=== PATIENT | female | born 1955 | race Native Hawaiian/Other Pacific Islander ===

== ENCOUNTER 2016-09-16 17:29 | Outpatient (CLI) | payer BC | END 2016-09-16 23:53 | disposition home or self-care (01) | LOC: US 17:29 | DX: R60.0 Localized edema (principal) ==

== ENCOUNTER 2016-10-24 07:58 | Outpatient (CLI) | payer BC | END 2016-10-24 19:34 | disposition home or self-care (01) | LOC: MAMMO 07:58 | DX: Z12.31 Encounter for screening mammogram for malignant neoplasm of breast (principal) | CPT/HCPCS: G0202-TC ==

== ENCOUNTER 2017-11-05 09:31 | Outpatient (CLI) | payer BC | END 2017-11-05 19:29 | disposition home or self-care (01) | LOC: MAMMO 09:31 | DX: Z12.31 Encounter for screening mammogram for malignant neoplasm of breast (principal) ==

== ENCOUNTER 2017-11-23 09:57 | Outpatient (CLI) | payer BC | END 2017-11-23 20:44 | disposition home or self-care (01) | LOC: RAD 09:57 | DX: Z13.820 Encounter for screening for osteoporosis (principal); N95.8 Other specified menopausal and perimenopausal disorders ==

== ENCOUNTER 2019-02-15 11:04 | Outpatient (CLI) | payer BC | END 2019-02-15 22:32 | disposition home or self-care (01) | LOC: RAD 11:04 | DX: M54.12 Radiculopathy, cervical region (principal) ==

== ENCOUNTER 2019-02-28 09:51 | Outpatient (CLI) | payer BC | END 2019-02-28 23:20 | disposition home or self-care (01) | LOC: MAMMO 09:51 | DX: Z12.31 Encounter for screening mammogram for malignant neoplasm of breast (principal) ==

== ENCOUNTER → 2019-06-18 | Outpatient (CLI) | payer BC | LOC: RAD 10:31 | DX: M25.511 Pain in right shoulder (principal) ==

== ENCOUNTER 2019-10-31 18:39 | Outpatient (CLI) | payer BC | END 2019-10-31 19:19 | disposition home or self-care (01) | LOC: LABW 18:39 | DX: R60.0 Localized edema (principal) | CPT/HCPCS: 83880 ==

== ENCOUNTER 2020-03-26 16:50 | Emergency (ER) | payer OTHER ==
[~2020-03-26] VITALS: Ht 152.4 cm; Wt 117.9 kg
[2020-03-26 17:54] LABS: PLATELET COUNT 216 K/uL (152-353)
[2020-03-26 17:59] LABS: POTASSIUM 3.9 mmol/L (3.6-5.2)
[2020-03-26 20:08] VITALS: BP 168/69; TEMP 99.7
== END 2020-03-26 20:10 | disposition home or self-care (01) ==
LOC: ED 16:50
PROVIDERS: Family Medicine
DX: E86.0 Dehydration (principal); K21.9 Gastro-esophageal reflux disease without esophagitis
CPT/HCPCS: 36415; 80053; 81000; 82150; 83605; 83690; 85027; 96360; 99284

== ENCOUNTER 2020-04-20 09:55 | Outpatient (CLI) | payer OTHER | END 2020-04-20 23:22 | disposition home or self-care (01) | LOC: MAMMO 09:55 | DX: Z12.31 Encounter for screening mammogram for malignant neoplasm of breast (principal) ==

== ENCOUNTER 2020-08-16 10:44 | Outpatient (CLI) | payer OTHER | END 2020-08-16 20:44 | disposition home or self-care (01) | LOC: RAD 10:44 | PROVIDERS: ATTEND Nurse Practitioner Family | DX: J20.9 Acute bronchitis, unspecified (principal) ==

== ENCOUNTER 2021-01-03 09:33 | Outpatient (CLI) | payer OTHER | END 2021-01-03 22:41 | disposition home or self-care (01) | LOC: CT 09:33 | PROVIDERS: ATTEND Nurse Practitioner Family | DX: F17.210 Nicotine dependence, cigarettes, uncomplicated (principal) ==

== ENCOUNTER 2021-04-23 16:20 | Outpatient (CLI) | payer OTHER ==
[2021-04-23 16:53] LABS: PLATELET COUNT 233 K/uL (152-353)
[2021-04-23 17:02] LABS: POTASSIUM 3.3 mmol/L (3.6-5.2)
== END 2021-04-23 19:15 | disposition home or self-care (01) ==
LOC: LAB 16:20
PROVIDERS: ATTEND Nurse Practitioner Family
DX: R60.0 Localized edema (principal)
CPT/HCPCS: 80053; 83880; 85027

== ENCOUNTER 2021-06-17 15:22 | Outpatient (CLI) | payer OTHER | END 2021-06-17 19:45 | disposition home or self-care (01) | LOC: RAD 15:22 | PROVIDERS: ATTEND Nurse Practitioner Family | DX: J44.1 Chronic obstructive pulmonary disease with (acute) exacerbation (principal) ==

== ENCOUNTER 2021-08-20 14:42 | Outpatient (CLI) | payer BC | END 2021-08-20 19:04 | disposition home or self-care (01) | LOC: RESP 14:42 | PROVIDERS: ATTEND Nurse Practitioner Family | DX: R60.0 Localized edema (principal) ==

== ENCOUNTER 2021-09-12 07:47 | Outpatient (CLI) | payer BC, OTHER ==
[~2021-09-12] VITALS: Ht 152.4 cm; Wt 127.0 kg
== END 2021-09-12 19:06 | disposition home or self-care (01) ==
LOC: NM 07:47
PROVIDERS: ATTEND Nurse Practitioner Family
DX: E78.2 Mixed hyperlipidemia (principal)
CPT/HCPCS: A9500; J2785

== ENCOUNTER 2021-11-06 11:36 | Outpatient (CLI) | payer BC, OTHER | END 2021-11-06 21:36 | disposition home or self-care (01) | LOC: RAD 11:36 | PROVIDERS: ATTEND Nurse Practitioner Family | DX: J44.1 Chronic obstructive pulmonary disease with (acute) exacerbation (principal) ==

== ENCOUNTER 2022-08-26 11:34 | Outpatient (CLI) | payer OTHER | END 2022-08-26 19:21 | disposition home or self-care (01) | LOC: US 11:34 | PROVIDERS: ATTEND Nurse Practitioner Family | DX: N93.8 Other specified abnormal uterine and vaginal bleeding (principal) ==

== ENCOUNTER 2022-09-09 10:46 | Outpatient (CLI) | payer OTHER | END 2022-09-09 19:37 | disposition home or self-care (01) | LOC: MAMMO 10:46 | PROVIDERS: ATTEND Nurse Practitioner Family | DX: Z12.31 Encounter for screening mammogram for malignant neoplasm of breast (principal); R91.8 Other nonspecific abnormal finding of lung field ==

== ENCOUNTER 2022-11-11 11:17 | Outpatient (CLI) | payer OTHER ==
[2022-11-11 11:38] LABS: PLATELET COUNT 230 K/uL (152-353)
[2022-11-11 11:43] LABS: POTASSIUM 3.5 mmol/L (3.6-5.2)
== END 2022-11-11 20:59 | disposition home or self-care (01) ==
LOC: LABW 11:17
PROVIDERS: ATTEND Nurse Practitioner Family
DX: Z01.818 Encounter for other preprocedural examination (principal); I10 Essential (primary) hypertension; Z51.81 Encounter for therapeutic drug level monitoring; Z79.899 Other long term (current) drug therapy
CPT/HCPCS: 36415; 80053; 85027; 85610; 85730; 93005

== ENCOUNTER 2023-09-15 08:36 | Outpatient (CLI) | payer OTHER | END 2023-09-15 19:23 | disposition home or self-care (01) | LOC: MAMMO 08:36 | PROVIDERS: ATTEND Family Medicine | DX: Z12.31 Encounter for screening mammogram for malignant neoplasm of breast (principal) ==